=== PATIENT | female | born 1945 | race Caucasian/White ===

== ENCOUNTER 2017-08-12 09:02 | Day surgery (SDC) | payer MEDICARE, BC ==
[~2017-08-12] VITALS: Ht 162.6 cm; Wt 80.2 kg
[2017-08-12 09:51] VITALS: BP 141/69; PULSE 52; TEMP 98.3
[2017-08-12] MEDS ORDERED: NEURONTIN100 MG/CAP PO (09:58)
[2017-08-12] MEDS ORDERED: BYSTOLIC20 MG PO (09:59)
[2017-08-12] MEDS ORDERED: PAXIL 30MG30 MG PO (09:59)
[2017-08-12] MEDS ORDERED: ZOCOR 20MG20 MG PO (10:00)
[2017-08-12] MEDS ORDERED: SYNTHROID0.05 MG/TA PO (10:01)
[2017-08-12] MEDS ORDERED: BETIMOL OU (10:01)
[2017-08-12] MEDS ORDERED: NORVASC 5MG5 MG/TAB PO (10:03)
[2017-08-12] MEDS ORDERED: XALATAN EYE DROPS OU (10:04)
[2017-08-12 12:50] VITALS: BP 133/69; PULSE 57; TEMP 98.2
[2017-08-12] MEDS ORDERED: PYRIDIUM 100MG100 MG PO (12:56)
[2017-08-12] MEDS ORDERED: NORCO 325 MG-51 TAB PO (12:57)
[2017-08-12] MEDS ORDERED: SENOKOT S 50 MG1 TAB PO (12:58)
[2017-08-12 13:05] VITALS: BP 144/62; PULSE 55
[2017-08-12 13:30] VITALS: BP 123/62; PULSE 57
== END 2017-08-12 14:05 | disposition home or self-care (01) ==
LOC: SDCO 09:02
DX: N30.01 Acute cystitis with hematuria (principal); E78.00 Pure hypercholesterolemia, unspecified; I10 Essential (primary) hypertension; F17.210 Nicotine dependence, cigarettes, uncomplicated; Z90.49 Acquired absence of other specified parts of digestive tract; Z90.710 Acquired absence of both cervix and uterus; Z85.828 Personal history of other malignant neoplasm of skin; Z85.51 Personal history of malignant neoplasm of bladder; Z80.0 Family history of malignant neoplasm of digestive organs; Z80.3 Family history of malignant neoplasm of breast; Z82.49 Family history of ischemic heart disease and other diseases of the circulatory system
CPT/HCPCS: J0690; J1100; J2405; J2704; J3010; J7120

== ENCOUNTER 2019-11-23 09:25 | Outpatient (CLI) | payer MEDICARE, BC ==
[~2019-11-23] VITALS: Ht 162.6 cm; Wt 72.5 kg
[2019-11-23] VITALS (16 sets, daily range): BP systolic 128–183; BP diastolic 70–101; PULSE 48–57
[~2019-11-23 09:25] MED LIST: BETIMOL OU; BYSTOLIC20 MG PO; NEURONTIN100 MG/CAP PO; NORCO 325 MG-51 TAB PO; NORVASC 5MG5 MG/TAB PO; PAXIL 30MG30 MG PO; PYRIDIUM 100MG100 MG PO; SENOKOT S 50 MG1 TAB PO; SYNTHROID0.05 MG/TA PO; XALATAN EYE DROPS OU; ZOCOR 20MG20 MG PO
== END 2019-11-28 17:07 | disposition home or self-care (01) ==
LOC: COL.RAD 09:25
DX: R91.1 Solitary pulmonary nodule (principal)
CPT/HCPCS: 32107